=== PATIENT | female | born 1985 | race Hispanic/Latino ===

== ENCOUNTER 2022-07-17 14:35 | Day surgery (SDC) | payer OTHER ==
[2022-07-17 16:10] VITALS: BMI 33.5
[2022-07-17] MEDS ORDERED: hydrALAZINE 20 MG/ML VIAL SLOW IVP PRN (16:13)
[2022-07-17] MEDS ORDERED: Acetaminophen 500 MG TAB PO SCH (16:14)
[2022-07-17 16:55] LABS: Fetal Membranes Rupture No Membranes Rupture (No Rupture)
== END 2022-07-17 18:20 | disposition home or self-care (01) ==
LOC: CSHLD/OP 14:35
PROVIDERS: ATTEND Family Medicine
DX: O26.893 Other specified pregnancy related conditions, third trimester (principal); R10.9 Unspecified abdominal pain; Z3A.33 33 weeks gestation of pregnancy; O99.513 Diseases of the respiratory system complicating pregnancy, third trimester; J45.909 Unspecified asthma, uncomplicated; Z79.899 Other long term (current) drug therapy
CPT/HCPCS: 84112; 87480; 87510; 87660; 99285

== ENCOUNTER 2022-08-22 19:30 | Inpatient (IN) | payer MEDICAID, OTHER, SELFPAY ==
[2022-08-23] MEDS ORDERED: hydrALAZINE 20 MG/ML VIAL SLOW IVP PRN ×2 (02:33→20:40)
[2022-08-23] MEDS ORDERED: Methylergonovine 0.2 MG/ML VIAL IM PRN (02:33)
[2022-08-23] MEDS ORDERED: Misoprostol 200 MCG TAB PR PRN (02:33)
[2022-08-23] MEDS ORDERED: Acetaminophen 500 MG TAB PO PRN (02:33)
[2022-08-23] MEDS ORDERED: Carboprost 250 MCG/ML AMP IM PRN (02:33)
[2022-08-23] MEDS ORDERED: Butorphanol Tartrate 1 MG/ML VIAL SLOW IVP PRN (02:33)
[2022-08-23] MEDS ORDERED: Promethazine HCl 25 MG/ML VIAL IM PRN ×3 (02:33→20:40)
[2022-08-23] MEDS ORDERED: Lidocaine 1% (PF) 30 ML VIAL SC PRN (02:33)
[2022-08-23] MEDS ORDERED: HYDROcodone/Acetaminophen 5/325 mg Tablet PO PRN ×3 (02:33→20:40)
[2022-08-23] MEDS ORDERED: Diphenoxylate HCl/Atropine Tablet PO PRN (02:33)
[2022-08-23] MEDS ORDERED: Ondansetron PF 4 MG/2 ML Vial IVP PRN ×3 (02:33→20:40)
[2022-08-23] MEDS ORDERED: Ibuprofen 800 MG TAB PO PRN (02:33)
[2022-08-23 02:51] VITALS: BMI 29.9
[2022-08-23] MEDS ORDERED: NS w/ Oxytocin 30 units 500 ML IV SCH ×2 (03:00)
[2022-08-23 03:32] LABS: Hemoglobin 11.8 g/dL (12.0-15.5); Mean Corpuscular HGB CONC 34.4 g/dL (32.0-36.0); Mean Corpuscular Hemoglobin 32.2 pg (27.0-33.0); Mean Corpuscular Volume 93.7 fl (81.6-98.3); Mean Platelet Volume 10.6 fl (7.4-10.4); Platelet Count 181 10x3/uL (150-450); RBC Distribution Width 13.5 % (11.5-14.5); Red Blood Cell (RBC) Count 3.66 10x6/uL (3.90-5.03); White Blood Cell (WBC) Count 8.9 10x3/uL (3.5-10.5)
[2022-08-23] MEDS: Misoprostol 100 MCG TAB PO SCH ×3 (03:36→11:10)
[2022-08-23 04:04] LABS: Syphilis Antibody Nonreactive (Nonreactive); Syphilis Antibody Index 0.12 S/CO (<1.00 Non-Reactive)
[2022-08-23 04:05] LABS: HBSAg Index 0.37 S/CO (0-0.99); Hep B Surf Ag Non-Reactive S/CO (NonReactive)
[2022-08-23 06:06] LABS: SARS-CoV-2 NAA Rapid Test Not Detected (NotDetected)
[2022-08-23] MEDS ORDERED: Bupivacaine 0.25% HCL 30 ML VIAL ONE (08:00)
[2022-08-23] MEDS ORDERED: ePHEDrine Sulfate 50 MG/10 ML VIAL ONE (08:00)
[2022-08-23] MEDS: Lactated Ringer's 1,000 ML IV SCH ×2 (10:30→14:25)
[2022-08-23] MEDS ORDERED: Fentanyl 2 mcg/Bup 0.1% Cadd 100 ML ONE (12:28)
[2022-08-23] MEDS ORDERED: ePHEDrine Sulfate 50 MG/10 ML VIAL SLOW IVP PRN (13:28)
[2022-08-23] MEDS ORDERED: Moisturizing Cream (Eucerin) 113 GM JAR TOP PRN (13:28)
[2022-08-23] MEDS ORDERED: Naloxone HCl 0.4 mg/ml Vial IVP PRN ×2 (13:28)
[2022-08-23] MEDS ORDERED: Acetaminophen 325 MG TAB PO PRN (13:28)
[2022-08-23] MEDS ORDERED: diphenhydrAMINE 50 MG/ML VIAL IVP PRN (13:28)
[2022-08-23] MEDS ORDERED: Lactated Ringer's 500 ML IV PRN (13:28)
[2022-08-23] MEDS ORDERED: Communication Order-Pharmacy FS SCH (13:30)
[2022-08-23] MEDS ORDERED: Fentanyl 2 mcg/Bupivacaine 0.1% Cassette 100 ML EPIDURAL SCH (13:30)
[2022-08-23] MEDS ORDERED: Tranexamic Acid 1,000 MG/10 ML VIAL ONE (17:04)
[2022-08-23] MEDS ORDERED: Lanolin Ointment 7 GM TUBE TOP PRN (20:40)
[2022-08-23] MEDS ORDERED: Milk Of Magnesia 30 ML UDCUP PO PRN (20:40)
[2022-08-23] MEDS ORDERED: Bisacodyl 10 MG SUPP PR PRN (20:40)
[2022-08-23] MEDS ORDERED: Boostrix 0.5 ML (Tdap) VIAL (>/=7 yrs of age) IM ONE (20:40)
[2022-08-23] MEDS ORDERED: diphenhydrAMINE 25 MG CAP PO PRN (20:40)
[2022-08-23] MEDS: Ibuprofen 800 MG TAB PO SCH (21:23)
[2022-08-23] MEDS: Docusate 100 MG CAP PO SCH (21:23)
[2022-08-24] MEDS: Ibuprofen 800 MG TAB PO SCH ×3 (05:43→21:49)
[2022-08-24] MEDS: Misoprostol 100 MCG TAB PO SCH (07:21)
[2022-08-24] MEDS: Ferrous Sulfate 325 MG TAB PO SCH ×2 (08:44→14:59)
[2022-08-24] MEDS: Docusate 100 MG CAP PO SCH ×2 (08:45→21:49)
[2022-08-24] MEDS: Prenatal Vitamin 1 TAB PO SCH (08:45)
[2022-08-25] MEDS: Ibuprofen 800 MG TAB PO SCH (05:18)
[2022-08-25] MEDS: Ferrous Sulfate 325 MG TAB PO SCH (08:36)
[2022-08-25] MEDS: Docusate 100 MG CAP PO SCH (08:53)
[2022-08-25] MEDS: Prenatal Vitamin 1 TAB PO SCH (08:53)
[2022-08-25 11:04] VITALS: BP 122/58; TEMP 98.1
== END 2022-08-25 12:10 | disposition home or self-care (01) | DRG 807 ==
LOC: CSHLD 08-23 02:30 → CSHPP 08-23 20:18
PROVIDERS: ADMIT Family Medicine; ATTEND Family Medicine
PROC: 10E0XZZ Delivery of Products of Conception, External Approach (ICD-10-PCS; principal; 2022-08-23)
PROC: 10907ZC Drainage of Amniotic Fluid, Therapeutic from Products of Conception, Via Natural or Artificial Opening (ICD-10-PCS; 2022-08-23)
PROC: 3E0P7VZ Introduction of Hormone into Female Reproductive, Via Natural or Artificial Opening (ICD-10-PCS; 2022-08-23)
DX: O80 Encounter for full-term uncomplicated delivery (principal); Z37.0 Single live birth; Z3A.39 39 weeks gestation of pregnancy; Z20.822 Contact with and (suspected) exposure to COVID-19
CPT/HCPCS: 36415; 51702; 85027; 86780; 86850; 86900; 86901; 87340; J7120; S0020; U0002